=== PATIENT | female | born 1995 | race American Indian/Alaskan Native ===

== ENCOUNTER 2017-11-07 13:09 | Emergency (ER) | payer SELFPAY ==
[2017-11-07 13:42] VITALS: BP 111/73
[2017-11-07] MEDS ORDERED: CLEOCIN IM ONE (14:30)
--- NOTE | 2017-11-07 14:33 | Emergency Department Report ---
Blank Doc - Documentation Documentation: [id number] exam is been done by me. I agree with Dr. pintoation by the SCOTTY. Patient has a right upper dental abscess. Patient has no muffled voice or any posterior pharynx involvement. The patient be started on antibiotics pain meds and be referred to oral surgery.
--- NOTE | 2017-11-07 14:35 | Emergency Department Report ---
ED ENT HPI - General Chief complaint: Dental/Oral Stated complaint: SWOLLEN FACE Time Seen by Provider: 11/07/17 14:26 Source: patient Mode of arrival: Ambulatory Limitations: No Limitations - History of Present Illness Initial comments: This is a 22-year-old female nontoxic, well nourished in appearance, no acute signs of distress presents to the ED with c/o of right upper toothache and facial swelling 3 weeks. Patient denies following up with a dentist. Patient stated that pain radiates from his job to his right side of head. Patient otherwise denies any head trauma. Patient describes toothache as aching level of 8 out of 10. Patient denies any facial swelling. Patient denies any numbness, tingling, fever, chills, headache, stiff neck, abdominal pain, chest pain, shortness of breath. Patient denies any drug allergies or significant past medical history. MD complaint: tooth pain -: week(s) (3) Location: tooth # 1 - pain Severity: mild Severity scale (0 -10): 8 Quality: aching Consistency: constant Improves with: none Worsens with: none Context- Dental: history of dental caries, poor dental care Associated Symptoms: gum swelling, toothache. denies: fever, cough, pain with swallowing, sore throat, tinnitus, hearing loss, discharge from ear, rhinorrhea - Related Data Previous Rx's Medication Instructions Recorded Last Taken Type Acetaminophen/Codeine 1 tab PO Q6H PRN #25 tab 06/22/14 Unknown Rx [Acetaminophen-Codeine #3 TAB] Ibuprofen [Motrin] 600 mg PO Q8H PRN #40 tablet 06/22/14 Unknown Rx Ibuprofen [Motrin] 800 mg PO Q8HR #20 tablet 01/07/16 Unknown Rx Sulfamethoxazole/Trimethoprim 1 each PO BID #20 tablet 01/07/16 Unknown Rx [Bactrim DS TAB] Chlorhexidine Mouthwash [Peridex] 15 ml MM BID #1 bottle 11/07/17 Unknown Rx Clindamycin [Clindamycin CAP] 300 mg PO Q8H 7 Days cap 11/07/17 Unknown Rx Ibuprofen [Motrin] 600 mg PO Q8H PRN #30 tablet 11/07/17 Unknown Rx traMADol [Ultram] 50 mg PO Q6HR PRN #12 tablet 11/07/17 Unknown Rx Allergies Allergy/AdvReac Type Severity Reaction Status Date / Time No Known Allergies Allergy Verified 11/07/17 13:40 ED Dental HPI - General Chief complaint: Dental/Oral Stated complaint: SWOLLEN FACE Time Seen by Provider: 11/07/17 14:26 Source: patient Mode of arrival: Ambulatory Limitations: No Limitations - Related Data Previous Rx's Medication Instructions Recorded Last Taken Type Acetaminophen/Codeine 1 tab PO Q6H PRN #25 tab 06/22/14 Unknown Rx [Acetaminophen-Codeine #3 TAB] Ibuprofen [Motrin] 600 mg PO Q8H PRN #40 tablet 06/22/14 Unknown Rx Ibuprofen [Motrin] 800 mg PO Q8HR #20 tablet 01/07/16 Unknown Rx Sulfamethoxazole/Trimethoprim 1 each PO BID #20 tablet 01/07/16 Unknown Rx [Bactrim DS TAB] Chlorhexidine Mouthwash [Peridex] 15 ml MM BID #1 bottle 11/07/17 Unknown Rx Clindamycin [Clindamycin CAP] 300 mg PO Q8H 7 Days cap 11/07/17 Unknown Rx Ibuprofen [Motrin] 600 mg PO Q8H PRN #30 tablet 11/07/17 Unknown Rx traMADol [Ultram] 50 mg PO Q6HR PRN #12 tablet 11/07/17 Unknown Rx Allergies Allergy/AdvReac Type Severity Reaction Status Date / Time No Known Allergies Allergy Verified 11/07/17 13:40 ED Review of Systems ROS: Stated complaint: SWOLLEN FACE Other details as noted in HPI Constitutional: denies: chills, fever Eyes: denies: eye pain, eye discharge, vision change ENT: dental pain. denies: ear pain, throat pain Respiratory: denies: cough, shortness of breath, wheezing Cardiovascular: denies: chest pain, palpitations Endocrine: no symptoms reported Gastrointestinal: denies: abdominal pain, nausea, diarrhea Genitourinary: denies: urgency, dysuria, discharge Musculoskeletal: denies: back pain, joint swelling, arthralgia Skin: denies: rash, lesions Neurological: denies: headache, weakness, paresthesias Psychiatric: denies: anxiety, depression Hematological/Lymphatic: denies: easy bleeding, easy bruising ED Past Medical Hx - Past Medical History Previous Medical History?: No - Surgical History Past Surgical History?: No - Social History Smoking Status: Never Smoker Substance Use Type: None - Medications Home Medications: Home Medications Medication Instructions Recorded Confirmed Last Taken Type Acetaminophen/Codeine 1 tab PO Q6H PRN #25 tab 06/22/14 Unknown Rx [Acetaminophen-Codeine #3 TAB] Ibuprofen [Motrin] 600 mg PO Q8H PRN #40 tablet 06/22/14 Unknown Rx Ibuprofen [Motrin] 800 mg PO Q8HR #20 tablet 01/07/16 Unknown Rx Sulfamethoxazole/Trimethoprim 1 each PO BID #20 tablet 01/07/16 Unknown Rx [Bactrim DS TAB] Chlorhexidine Mouthwash [Peridex] 15 ml MM BID #1 bottle 11/07/17 Unknown Rx Clindamycin [Clindamycin CAP] 300 mg PO Q8H 7 Days cap 11/07/17 Unknown Rx Ibuprofen [Motrin] 600 mg PO Q8H PRN #30 tablet 11/07/17 Unknown Rx traMADol [Ultram] 50 mg PO Q6HR PRN #12 tablet 11/07/17 Unknown Rx ED Physical Exam - General Limitations: No Limitations General appearance: alert, in no apparent distress - Head Head exam: Present: atraumatic, normocephalic - Eye Eye exam: Present: normal appearance Pupils: Present: normal accommodation - ENT ENT exam: Present: normal orophraynx, mucous membranes moist, TM's normal bilaterally, normal external ear exam - Expanded ENT Exam Expanded Ear exam: Present: normal external inspection Mouth exam: Present: normal external inspection, tongue normal. Absent: drooling, trismus, muffled voice, tongue elevation, laceration Teeth exam: Present: dental caries, fractured tooth #, dental tenderness #, gingival enlargement, other (Facial swelling noted to right upper mandible region.) Throat exam: Positive: normal inspection, other (Uvula midline. No abscess or swelling noted.). Negative: tonsillar erythema, tonsillomegaly, tonsillar exudate, R peritonsillar mass, L peritonsillar mass - Neck Neck exam: Present: normal inspection, full ROM. Absent: tenderness, meningismus, lymphadenopathy - Respiratory Respiratory exam: Present: normal lung sounds bilaterally. Absent: respiratory distress, wheezes, rales, rhonchi, stridor - Cardiovascular Cardiovascular Exam: Present: regular rate, normal rhythm, normal heart sounds. Absent: bradycardia, tachycardia, irregular rhythm, systolic murmur, diastolic murmur, rubs, gallop - GI/Abdominal GI/Abdominal exam: Present: soft, normal bowel sounds - Extremities Exam Extremities exam: Present: normal inspection, full ROM, normal capillary refill - Back Exam Back exam: Present: normal inspection, full ROM - Neurological Exam Neurological exam: Present: alert, oriented X3, CN II-XII intact, normal gait - Psychiatric Psychiatric exam: Present: normal affect, normal mood - Skin Skin exam: Present: warm, dry, intact, normal color. Absent: rash ED Course Vital Signs 11/07/17 13:40 Temperature 98.7 F Pulse Rate 78 Respiratory 18 Rate Blood Pressure 111/73 O2 Sat by Pulse 100 Oximetry - Reevaluation(s) Reevaluation #1: 11/07/17 14:40 Patient is speaking in full sentences with no signs of distress noted. - Consultations Consultation #1: 11/07/17 14:41 Patient has been consulted with Dr. Howell about patient history, physical exam , and labs and examined and screened patient and stated no imaging need and to start patient on antibiotics with oral maxillary surgeon follow up. ED Medical Decision Making - Medical Decision Making This is a 22-year-old female that presents with gingivitis and dental caries. Patient is stable and was examined by me and Dr. Howell. There is slight swelling to the right upper mandible. As per Dr. Howell, no imaging studies to be obtained. I did give patient clindamycin 600 mg IM in the ED and patient is discharged with clindamycin. He had strict instructions to follow-up with oral maxillary surgeon in 24 hours or if symptoms would worsen to return to emergency room as was possible. Patient is discharged with Ultram, Peridex and Clinda. Patient was instructed not to operate any machinery when taking Ultram due to drowsiness. At time of discharge, the patient does not seem toxic or ill in appearance. No acute signs of distress noted. Patient agrees to discharge treatment plan of care. No further questions noted by the patient. Critical care attestation.: If time is entered above; I have spent that time in minutes in the direct care of this critically ill patient, excluding procedure time. ED Disposition Clinical Impression: Dental caries, Gingivitis Disposition: DC-01 TO HOME OR SELFCARE Is pt being admited?: No Does the pt Need Aspirin: No Condition: Stable Instructions: Dental Caries (ED), Gingivitis (ED), Clindamycin (By mouth) Additional Instructions: Follow-up with oral maxillary surgeon in 24 hours or if symptoms would worsen to return to emergency room as was possible. 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 [Outside] - 24 Hours Forms: Work/School Release Form(ED)
== END 2017-11-07 15:35 | disposition home or self-care (01) ==
LOC: ED 13:09
DX: K05.10 Chronic gingivitis, plaque induced (principal)
CPT/HCPCS: 96372; 99282

== ENCOUNTER 2019-12-27 14:37 | Emergency (ER) | payer SELFPAY ==
[2019-12-27 15:20] VITALS: BP 109/72
--- NOTE | 2019-12-27 15:31 | Event Note ---
ED Screening Note ED Screening Note: lump under left breast that occurred 6 months ago and self resolved states that she noticed it again a few days ago no drainage believes it is increasing in size no drainage no fever no vomiting PMHx none no allergies to meds LNMP: 12/15/2019
--- NOTE | 2019-12-27 15:34 | Emergency Department Report ---
Chief Complaint: Skin/Abscess/Foreign Body Stated Complaint: CP/LUMP Time Seen by Provider: 12/27/19 15:26 - HPI History of Present Illness: Patient is a 24-year-old female who presents the emergency room with complaints of lump under left breast that occurred 6 months ago and self resolved states that she noticed it again a few days ago no drainage believes it is increasing in size no drainage no fever no vomiting PMHx none no allergies to meds LNMP: 12/15/2019 Vitals are stable On exam: There is a 2 cm firm nodule present to the left breast at the 9 o'clock position, it is present at the breast fold, there is no erythema, no increased warmth, no fluctuance, no dimpling of the skin, no nipple retraction, no nipple discharge [employer] Coordinator present: POLLY Hayes Patient is a 24-year-old female presenting with a breast nodule No signs of infection no signs of Inflammatory changes to the breast advised pt please follow up with a primary care doctor, health department, or [facility]. return to the emergency room for any new or worsening symptoms as discussed. Discussed patient that she would need to follow-up with [facility] ATTENDANT or primary care doctor for breast ultrasound versus mammogram Discussed in detail with patient strict return precautions Advised patient that if began increasing in size, began draining, redness, warmth, began to feel soft like it had fluid underneath then return to the emergency room immediately Medical screening examination performed and there is no threat to life or limb at this time - Exam Vital Signs: Vital Signs 12/27/19 15:17 Temperature 99.0 F Pulse Rate 63 Respiratory 12 Rate Blood Pressure 109/72 O2 Sat by Pulse 96 Oximetry MSE screening note: Focused history and physical exam performed. ED Disposition for MSE Clinical Impression: Left breast lump Disposition: Z-07 MED SCREENING EXAM-LEFT Is pt being admited?: No Does the pt Need Aspirin: No Condition: Stable Additional Instructions: please follow up with a primary care doctor, health department, or ROLLING ATTENDANT. return to the emergency room for any new or worsening symptoms as discussed. Referrals: AYSE REZA MD [Staff Physician] - 3-5 Days [facility] [Provider Group] - 3-5 Days [facility] [Outside] - 3-5 Days [facility] [Provider Group] - 3-5 Days [facility] [Outside] - 3-5 Days [facility] [Provider Group] - 3-5 Days Forms: Work/School Release Form(ED) Time of Disposition: 15:32 Print Language: TURKMEN
== END 2019-12-27 15:37 | disposition left against medical advice (07) ==
LOC: ED 14:37
DX: R07.9 Chest pain, unspecified (principal); Z53.21 Procedure and treatment not carried out due to patient leaving prior to being seen by health care provider